=== PATIENT | female | born 1990 | race Caucasian/White ===

== ENCOUNTER 2017-12-22 06:00 | Inpatient (IN) | payer OTHER ==
[~2017-12-22] VITALS: Ht 175 cm; Wt 79.4 kg
[2017-12-22] MEDS ORDERED: OXYTOCIN 30 UNITS/LACT RINGERS 500 ML IV ONE (06:12)
[2017-12-22] MEDS ORDERED: RINGERS SOLUTION,LACTATED 1,000 ML IV PRN (06:12)
[2017-12-22] MEDS ORDERED: METOCLOPRAMIDE HCL 5 MG/ML 2 ML VIAL IVP PRN (06:15)
[2017-12-22] MEDS ORDERED: CITRIC ACID/SODIUM CITRATE 30 ML SOLUTION UDCUP PO PRN (06:15)
[2017-12-22] MEDS ORDERED: FentaNYL CITRATE-PF 100 MCG/2 ML VIAL IVP PRN (06:15)
[2017-12-22 06:20] VITALS: BP 116/77
[2017-12-22 07:02] LABS: BASOPHILS % (AUTO) 0.7 % (0.0-2.0); EOSINOPHILS % (AUTO) 0.6 % (1.0-6.0); HEMATOCRIT 36.6 % (36-46); HEMOGLOBIN 12.7 g/dL (12.0-16.0); LYMPHOCYTES # (AUTO) 2.7 K/uL (1.0-4.8); LYMPHOCYTES % (AUTO) 29.4 % (22.0-44.0); MEAN CORPUSCULAR HEMOGLOBIN 31.4 pg (26.0-34.0); MEAN CORPUSCULAR HGB CONC 34.6 G/dL (31.0-37.0); MEAN CORPUSCULAR VOLUME 91 fL (80-100); MONOCYTES # (AUTO) 0.7 K/uL (0.1-1.0); MONOCYTES % (AUTO) 7.6 % (2.0-9.0); NEUTROPHILS # (AUTO) 5.7 K/uL (1.8-7.7); NEUTROPHILS % (AUTO) 61.7 % (40.0-70.0); PLATELET COUNT (AUTO) 193 K/uL (150-450); RED BLOOD CELL COUNT(AUTO) 4.03 MIL/uL (4.00-5.20)
[2017-12-22] MEDS ORDERED: PREN1TAB80 PO (07:21)
[2017-12-22] MEDS ORDERED: MISOPROSTOL 25 MCG TABLET VG SCH (07:30)
[2017-12-22] MEDS ORDERED: AMPICILLIN SODIUM 2 GM/NS 100 ML IV ONE (07:30)
[2017-12-22] MEDS: RINGERS SOLUTION,LACTATED 1,000 ML IV SCH ×4 (07:30→20:30)
[2017-12-22] MEDS ORDERED: OXYGEN THERAPY IH SCH (08:00)
[2017-12-22] MEDS ORDERED: MISOPROSTOL 25 MCG TABLET VG ONE (11:45)
[2017-12-22] MEDS: AMPICILLIN SODIUM 1 GM/NS 50 ML IV SCH ×3 (11:47→20:02)
[2017-12-22] MEDS ORDERED: OXYTOCIN 30 UNITS/LACT RINGERS 500 ML IV PRN (16:11)
[2017-12-22] MEDS ORDERED: ROPIVACAINE HCL/PF 0.2% 100 ML ED ONE (19:49)
[2017-12-22] MEDS ORDERED: LIDOCAINE HCL/PF 2% 5 ML VIAL ONE (19:49)
[2017-12-22] MEDS ORDERED: ROPIVACAINE HCL/PF 0.2% 100 ML ED PRN (20:04)
[2017-12-22] MEDS ORDERED: NALBUPHINE HCL 10 MG/ML VIAL IVP PRN (20:15)
[2017-12-22] MEDS ORDERED: DiphenhydrAMINE HCL 50 MG/ML VIAL IVP PRN (20:15)
[2017-12-22] MEDS ORDERED: ONDANSETRON HCL 4 MG/2 ML VIAL IVP PRN (20:15)
[2017-12-23] MEDS ORDERED: LANOLIN 7 GM OINTMENT TP PRN (00:45)
[2017-12-23] MEDS ORDERED: MAGNESIUM HYDROXIDE SUSPENSION 30 ML UDCUP PO PRN (00:45)
[2017-12-23] MEDS ORDERED: OxyCODONE HCL/ACETAMINOPHEN 5-325 MG TABLET PO PRN ×2 (00:45)
[2017-12-23] MEDS ORDERED: SENNA/DOCUSATE SODIUM 187-50 MG TABLET PO PRN (00:45)
[2017-12-23] MEDS ORDERED: IBUPROFEN 800 MG TABLET PO PRN (00:45)
[2017-12-23] MEDS ORDERED: METHYLERGONOVINE MALEATE 0.2 MG TABLET PO PRN (00:45)
[2017-12-23] MEDS ORDERED: GLYCERIN/WITCH HAZEL LEAF 40 PADS JAR TP PRN (00:45)
[2017-12-23] MEDS ORDERED: BENZOCAINE 20%/MENTHOL 56 GM SPRAY CANISTER TP PRN (00:45)
[2017-12-23 07:49] LABS: BASOPHILS % (AUTO) 0.4 % (0.0-2.0); EOSINOPHILS % (AUTO) 0.1 % (1.0-6.0); HEMOGLOBIN 12.1 g/dL (12.0-16.0); LYMPHOCYTES % (AUTO) 14.7 % (22.0-44.0); MEAN CORPUSCULAR HEMOGLOBIN 30.8 pg (26.0-34.0); MEAN CORPUSCULAR HGB CONC 33.7 G/dL (31.0-37.0); MEAN CORPUSCULAR VOLUME 91 fL (80-100); MONOCYTES # (AUTO) 1.1 K/uL (0.1-1.0); MONOCYTES % (AUTO) 8.3 % (2.0-9.0); NEUTROPHILS # (AUTO) 10.5 K/uL (1.8-7.7); NEUTROPHILS % (AUTO) 76.5 % (40.0-70.0); PLATELET COUNT (AUTO)-OB 174 K/uL (150-450); RED BLOOD CELL COUNT(AUTO) 3.94 MIL/uL (4.00-5.20); RED CELL DISTRIBUTION WIDTH 14.1 % (11.5-14.5)
[2017-12-23] MEDS ORDERED: ROPIVACAINE HCL/PF 0.2% 100 ML ED ONE (09:39)
[2017-12-23] MEDS ORDERED: MEASLES/MUMPS/RUBELLA VACCINE, LIVE 0.5 ML/VIAL SQ ONE (15:15)
[2017-12-24] MEDS ORDERED: IBUP-2071 PO (08:13)
== END 2017-12-24 10:40 | disposition home or self-care (01) | DRG 775 ==
LOC: 4S 06:00 → PREOBSVTOIN 12-31 06:16
PROVIDERS: ADMIT Specialist; ATTEND Specialist
PROC: 10E0XZZ Delivery of Products of Conception, External Approach (ICD-10-PCS; principal; 2017-12-23)
PROC: 0W8NXZZ Division of Female Perineum, External Approach (ICD-10-PCS; 2017-12-23)
PROC: 3E0R3BZ Introduction of Anesthetic Agent into Spinal Canal, Percutaneous Approach (ICD-10-PCS; 2017-12-23)
PROC: 00HU33Z Insertion of Infusion Device into Spinal Canal, Percutaneous Approach (ICD-10-PCS; 2017-12-23)
PROC: 3E0134Z Introduction of Serum, Toxoid and Vaccine into Subcutaneous Tissue, Percutaneous Approach (ICD-10-PCS; 2017-12-23)
DX: O99.824 Streptococcus B carrier state complicating childbirth (principal); O69.81X0 Labor and delivery complicated by cord around neck, without compression, not applicable or unspecified; Z3A.39 39 weeks gestation of pregnancy; Z37.0 Single live birth; Z23 Encounter for immunization
CPT/HCPCS: 86850; 86900; 86901; 90707; J0290; J2590; J2795; J3490; J7120